=== PATIENT | female | born 1995 | race Hispanic/Latino ===

== ENCOUNTER 2022-07-12 14:35 | Emergency (ER) | payer BC ==
[~2022-07-12] VITALS: Ht 152.4 cm; Wt 110.7 kg
[2022-07-12] MEDS ORDERED: CORICIDIN HBP1 EACH PO (16:31)
== END 2022-07-12 16:48 | disposition home or self-care (01) ==
LOC: FSED 14:47
DX: R05.9 Cough, unspecified (principal); B34.9 Viral infection, unspecified
CPT/HCPCS: 87400; 99282